=== PATIENT | male | born 1990 | race Caucasian/White ===

== ENCOUNTER 2023-01-14 00:28 | Emergency (ER) | payer OTHER ==
[~2023-01-14] VITALS: Ht 180.3 cm; Wt 72.0 kg
[2023-01-14 00:36] VITALS: TEMP 98.3
[2023-01-14 00:37] VITALS: BP 132/94; PULSE 72; RESP 16
== END 2023-01-14 01:09 | disposition home or self-care (01) ==
LOC: EMS 00:29
DX: T16.1XXA Foreign body in right ear, initial encounter (principal); W44.8XXA Other foreign body entering into or through a natural orifice, initial encounter; Y93.89 Activity, other specified; Y92.89 Other specified places as the place of occurrence of the external cause; Y99.8 Other external cause status
CPT/HCPCS: 99281; Z7502

== ENCOUNTER 2023-02-28 06:21 | Emergency (ER) | payer OTHER ==
[~2023-02-28] VITALS: Ht 177.8 cm; Wt 82.0 kg
[2023-02-28] MEDS: SODIUM CHLORIDE 0.9% 1,000 ML IV ONE ×3 (07:21→11:38)
[2023-02-28 07:22] LABS: BASOPHILS % (AUTO) 0.7 % (0.0-2.0); EOSINOPHILS % (AUTO) 1.5 % (1.0-6.0); HEMATOCRIT 41.9 % (41-53); HEMOGLOBIN 14.4 g/dL (13.5-17.5); LYMPHOCYTES # (AUTO) 1.4 K/uL (1.0-4.8); LYMPHOCYTES % (AUTO) 13.1 % (22.0-44.0); MEAN CORPUSCULAR HEMOGLOBIN 32.8 pg (26.0-34.0); MEAN CORPUSCULAR HGB CONC 34.3 G/dL (31.0-37.0); MEAN CORPUSCULAR VOLUME 96 fL (80-100); MONOCYTES # (AUTO) 1.3 K/uL (0.1-1.0); MONOCYTES % (AUTO) 11.7 % (2.0-9.0); NEUTROPHILS # (AUTO) 7.9 K/uL (1.8-7.7); PLATELET COUNT (AUTO) 263 K/uL (150-450); RED BLOOD CELL COUNT(AUTO) 4.38 MIL/uL (4.50-5.90); RED CELL DISTRIBUTION WIDTH 13.3 % (11.5-14.5); WHITE BLOOD COUNT (AUTO) 10.8 K/uL (4.5-11.0)
[2023-02-28] MEDS: KETOROLAC TROMETHAMINE 30 MG/ML VIAL IVP ONE (07:25)
[2023-02-28 07:30] LABS: ANION GAP 5 mmol/L (8-16); CALCIUM, TOTAL 9.2 mg/dL (8.8-10.5); CARBON DIOXIDE 32 mmol/L (22-29); CHLORIDE 104 mmol/L (98-107); GLOMERULAR FILTR. RATE CALC > 60 mL/min (>60); GLUCOSE,RANDOM 80 mg/dL (70-110); SODIUM SERUM 141 mmol/L (136-145); UREA NITROGEN, BLOOD 9 mg/dL (7-18)
[2023-02-28 07:32] LABS: ALANINE AMINOTRANSFERASE 59 U/L (12-78); ALBUMIN 3.6 g/dL (3.4-5.0); ALKALINE PHOSPHATASE 106 U/L (46-116); ASPARTATE AMINOTRANSFERASE 32 U/L (15-37); BILIRUBIN,TOTAL 0.5 mg/dL (0.1-1.0); LIPASE 50 U/L (16-77); TOTAL PROTEIN, SERUM 7.7 g/dL (6.4-8.2)
[2023-02-28 10:53] VITALS: BP 135/86; PULSE 86; RESP 16; TEMP 97.9
[2023-02-28 14:19] LABS: APPEARANCE,URINE CLEAR (CLEAR); BILIRUBIN,URINE NEGATIVE (NEGATIVE); COLOR,URINE YELLOW (YELLOW); GLUCOSE, URINE (UA) NEGATIVE (NEGATIVE); KETONES,URINE NEGATIVE (NEGATIVE); LEUKOCYTE ESTERASE ,URINE NEGATIVE (NEGATIVE); NITRATE,URINE NEGATIVE (NEGATIVE); OCCULT BLOOD,URINE NEGATIVE (NEGATIVE); PH,URINE 6.5 (5.0-8.0); PROTEIN,URINE NEGATIVE (NEGATIVE); SPECIFIC GRAVITIY, URINE 1.027 (1.003-1.030)
[2023-02-28 14:46] LABS: BACTERIA,URINE None Seen /HPF (None Seen); RBC,URINE None Seen /HPF (0-2); WBC,URINE 0-2 /HPF (0-5)
[2023-02-28] MEDS ORDERED: ACET-2080 PO (19:48)
[2023-02-28] MEDS ORDERED: IBUP-1554 PO (19:48)
[2023-02-28] MEDS ORDERED: GUAIFDM PO (19:48)
== END 2023-02-28 14:25 | disposition home or self-care (01) ==
LOC: EMS 06:21
DX: R10.11 Right upper quadrant pain (principal); R07.89 Other chest pain
CPT/HCPCS: 99284; 96374; 71045; 96361; 80053; 81001; 83690; 85025; 36415; J1885; J7030

== ENCOUNTER 2023-02-28 19:24 | Emergency (ER) | payer OTHER ==
[~2023-02-28] VITALS: Ht 182.9 cm; Wt 63.0 kg
[2023-02-28 19:33] VITALS: BP 116/85; PULSE 85; RESP 15; TEMP 98.3
[2023-02-28] MEDS ORDERED: IBUP-1554 PO (19:48)
[2023-02-28] MEDS ORDERED: GUAIFDM PO (19:48)
[2023-02-28] MEDS ORDERED: ACET-2080 PO (19:48)
[2023-02-28] MEDS: GuaiFENesin/D-METHORPHAN [SUGAR-FREE] 200-20MG/10 ML SYRUP UDCUP PO ONE (19:54)
[2023-02-28] MEDS: ACETAMINOPHEN/CODEINE 300-30 MG TABLET PO ONE (19:54)
[2023-02-28] MEDS: IBUPROFEN 600 MG TABLET PO ONE (19:54)
== END 2023-02-28 20:11 | disposition home or self-care (01) ==
LOC: EMS 19:25
DX: R07.89 Other chest pain (principal); F17.210 Nicotine dependence, cigarettes, uncomplicated; F15.90 Other stimulant use, unspecified, uncomplicated; R05.9 Cough, unspecified; R09.81 Nasal congestion
CPT/HCPCS: 99284; Z7502; Z7610

== ENCOUNTER 2023-12-27 19:43 | Emergency (ER) | payer MEDICAID, OTHER ==
[~2023-12-27] VITALS: Ht 182.9 cm; Wt 74.1 kg
[~2023-12-27 19:43] MED LIST: ACET-2080 PO; GUAIFDM PO; IBUP-1554 PO
[2023-12-27 20:16] VITALS: TEMP 98.7
[2023-12-27 20:45] VITALS: BP 129/89; PULSE 92; RESP 17; O2SAT 98
[2023-12-27] MEDS: LIDOCAINE 1% 10 ML VIAL SQ ONE ×2 (20:47→20:52)
[2023-12-27] MEDS: BACITRACIN 0.9 GM PACKET OINTMENT TP ONE (20:47)
[2023-12-27] MEDS: IBUPROFEN 600 MG TABLET PO ONE (20:47)
== END 2023-12-27 21:51 | disposition home or self-care (01) ==
LOC: EMS 19:43
DX: S51.812A Laceration without foreign body of left forearm, initial encounter (principal); F17.210 Nicotine dependence, cigarettes, uncomplicated; F15.90 Other stimulant use, unspecified, uncomplicated; W26.8XXA Contact with other sharp object(s), not elsewhere classified, initial encounter; Y93.89 Activity, other specified; Y92.89 Other specified places as the place of occurrence of the external cause; Y99.8 Other external cause status
CPT/HCPCS: 99282; 12002; J3490

== ENCOUNTER 2024-02-26 06:18 | Emergency (ER) | payer MEDICAID ==
[~2024-02-26] VITALS: Ht 182.9 cm; Wt 68.2 kg
[2024-02-26 06:21] VITALS: TEMP 98.4
[2024-02-26 06:46] LABS: BASOPHILS % (AUTO) 0.8 % (0.0-2.0); HEMATOCRIT 43.5 % (41-53); HEMOGLOBIN 14.7 g/dL (13.5-17.5); LYMPHOCYTES # (AUTO) 2.9 K/uL (1.0-4.8); LYMPHOCYTES % (AUTO) 32.4 % (22.0-44.0); MEAN CORPUSCULAR HEMOGLOBIN 31.6 pg (26.0-34.0); MEAN CORPUSCULAR HGB CONC 33.8 G/dL (31.0-37.0); MEAN CORPUSCULAR VOLUME 94 fL (80-100); MONOCYTES # (AUTO) 0.7 K/uL (0.1-1.0); MONOCYTES % (AUTO) 7.8 % (2.0-9.0); NEUTROPHILS # (AUTO) 5.1 K/uL (1.8-7.7); PLATELET COUNT (AUTO) 232 K/uL (150-450); RED BLOOD CELL COUNT(AUTO) 4.65 MIL/uL (4.50-5.90); WHITE BLOOD COUNT (AUTO) 8.8 K/uL (4.5-11.0)
[2024-02-26 06:54] LABS: ANION GAP 4 mmol/L (8-16); CALCIUM, TOTAL 8.7 mg/dL (8.8-10.5); CARBON DIOXIDE 32 mmol/L (22-29); CHLORIDE 104 mmol/L (98-107); CREATININE 1.07 mg/dL (0.60-1.30); GLOMERULAR FILTR. RATE CALC > 60 mL/min (>60); GLUCOSE,RANDOM 83 mg/dL (70-110); POTASSIUM 3.8 mmol/L (3.5-5.1); SODIUM SERUM 140 mmol/L (136-145); UREA NITROGEN, BLOOD 9 mg/dL (7-18)
[2024-02-26] MEDS: AMPICILLIN SODIUM/SULBACTAM NA 3 GM in SODIUM CHLORIDE 0.9% 100 ML IV ONE (08:46)
[2024-02-26] MEDS: KETOROLAC TROMETHAMINE 30 MG/ML VIAL IVP ONE (09:32)
[2024-02-26 12:07] VITALS: BP 118/76; PULSE 81; RESP 16; O2SAT 99
== END 2024-02-26 13:34 | disposition short-term general hospital (02) ==
LOC: EMS 06:18
DX: S02.609A Fracture of mandible, unspecified, initial encounter for closed fracture (principal); F31.9 Bipolar disorder, unspecified; F17.210 Nicotine dependence, cigarettes, uncomplicated; F15.90 Other stimulant use, unspecified, uncomplicated; Z04.89 Encounter for examination and observation for other specified reasons; X58.XXXA Exposure to other specified factors, initial encounter; Y93.89 Activity, other specified; Y92.89 Other specified places as the place of occurrence of the external cause; Y99.8 Other external cause status
CPT/HCPCS: 99285; 70450; 96365; 96375; 99406; 80048; 85025; 36415; 70486; 72125; J1885; J0295; J7050

== ENCOUNTER 2024-10-31 20:58 | Emergency (ER) | payer MEDICAID ==
[~2024-10-31] VITALS: Ht 180.3 cm; Wt 74.5 kg
[2024-10-31 21:11] VITALS: BP 124/84; PULSE 94; RESP 20; TEMP 98.3; O2SAT 99
[2024-11-01] MEDS ORDERED: IBUPROFEN 800 MG TABLET ONE (00:07)
[2024-11-01] MEDS ORDERED: AMOXICILLIN TRIHYDRATE 250 MG CAPSULE ONE (00:07)
[2024-11-01] MEDS ORDERED: IBUP-1493 PO (00:08)
[2024-11-01] MEDS ORDERED: AMOX500C2 PO (00:08)
[2024-11-01] MEDS: AMOXICILLIN TRIHYDRATE 250 MG CAPSULE PO ONE (00:10)
[2024-11-01] MEDS: IBUPROFEN 800 MG TABLET PO ONE (00:10)
== END 2024-11-01 00:44 | disposition home or self-care (01) ==
LOC: EMS 20:58
DX: H66.92 Otitis media, unspecified, left ear (principal); T16.2XXA Foreign body in left ear, initial encounter; F17.210 Nicotine dependence, cigarettes, uncomplicated; F15.90 Other stimulant use, unspecified, uncomplicated; Z79.899 Other long term (current) drug therapy; W44.F9XA Other object of natural or organic material, entering into or through a natural orifice, initial encounter
CPT/HCPCS: 99283

== ENCOUNTER 2024-12-13 14:25 | Emergency (ER) | payer MEDICAID ==
[~2024-12-13] VITALS: Ht 177.8 cm; Wt 70.5 kg
[~2024-12-13 14:25] MED LIST changes: +AMOX500C2 PO; +IBUP-1493 PO
[2024-12-13 14:30] VITALS: BP 144/91; PULSE 119; RESP 18; TEMP 98.5; O2SAT 98
[2024-12-13] MEDS ORDERED: CEPH-558 PO (15:32)
[2024-12-13] MEDS: IBUPROFEN 600 MG TABLET PO ONE (15:52)
[2024-12-13] MEDS: CEPHALEXIN MONOHYDRATE 500 MG CAPSULE PO ONE (15:52)
[2024-12-13] MEDS: BACITRACIN 0.9 GM PACKET OINTMENT TP ONE (15:52)
[2024-12-13] MEDS: ACETAMINOPHEN 500 MG TABLET PO ONE (15:52)
== END 2024-12-13 16:10 | disposition home or self-care (01) ==
LOC: EMS 14:25
DX: S60.361A Insect bite (nonvenomous) of right thumb, initial encounter (principal); L08.9 Local infection of the skin and subcutaneous tissue, unspecified; F17.210 Nicotine dependence, cigarettes, uncomplicated; Z79.899 Other long term (current) drug therapy; F15.90 Other stimulant use, unspecified, uncomplicated; W57.XXXA Bitten or stung by nonvenomous insect and other nonvenomous arthropods, initial encounter; Y93.89 Activity, other specified; Y92.89 Other specified places as the place of occurrence of the external cause; Y99.8 Other external cause status
CPT/HCPCS: 99284; Z7502; Z7610